=== PATIENT | female | born 1940 | race African-American/Black ===

== ENCOUNTER 2019-11-19 14:39 | Outpatient (CLI) | payer MEDICARE, MEDICAID, SELFPAY | END 2019-11-19 14:40 | disposition home or self-care (01) | LOC: ANHAUDIO 14:42 | DX: H90.3 Sensorineural hearing loss, bilateral (principal) | CPT/HCPCS: 92557; 92567 ==

== ENCOUNTER 2019-12-15 11:02 | Outpatient (RCR) | payer MEDICAID, SELFPAY | END 2019-12-15 23:59 | disposition home or self-care (01) | LOC: ANHAUDIO 11:02 | DX: Z46.1 Encounter for fitting and adjustment of hearing aid (principal) | CPT/HCPCS: V5160; V5261 ==